=== PATIENT | female | born 1955 | race Caucasian/White ===

== ENCOUNTER 2018-02-22 10:17 | Inpatient (IN) | payer OTHER, SELFPAY ==
[2018-02-21 12:48] VITALS: BMI 25.8
[2018-02-22] VITALS (17 sets, daily range): BP systolic 107–170; BP diastolic 76–96; PULSE 83–89; RESP 12–20; TEMP 36.3–36.8; O2SAT 93–97; BMI 27.2
--- NOTE | 2018-02-22 | DI.RAD.S_ITS ---
PROCEDURE: XR CERVICAL SPINE 2V OR 3V INDICATIONS: C4-5,C5-6,C6-7 ACDF TECHNIQUE: 2 intraoperative views of the cervical spine were acquired. [facility], 15:32. FINDINGS: 2 intraoperative fluoroscopic views of the cervical spine demonstrate anterior fixation and fusion at C4-C7 with an anterior fixation plate and multiple fixation screws. IMPRESSION: 1. Intraoperative fluoroscopic views demonstrate ACDF at C4-C7. Dictated by: Seymour Kolb M.D. on 02/22/2018 at 15:46 Approved by: Seymour Kolb M.D. on 02/22/2018 at 15:53
[2018-02-22] MEDS: LACTATED RINGERS 1,000 ML 42 ML IV ×2 (11:03→15:21)
--- NOTE | 2018-02-22 11:53 | PM.PREOP ---
Pre-operative Note Interval Note Pre-op Check: Yes History & Physical Reviewed by Physician, Yes Exam Performed and Yes History & Physical exam performed today by Physician Changes: No
[2018-02-22] MEDS: CEFAZOLIN 2 GM/100 ML FROZ.PIGGY IV ×2 (12:45→20:54)
--- NOTE | 2018-02-22 13:14 | SUR.OPER ---
Supine, head on gel donut. Arms padded with gel pads and papoosed with a draw sheet and secured with towel clips x 2; towel roll under shoulders. Pt. taped from shoulders to foot of bed. Safety belt at thigh. Legs uncrossed.
[2018-02-22] MEDS: ACETAMINOPHEN IV 1,000 MG/100 ML VIAL 400 MG IV (14:08)
[2018-02-22] MEDS: HYDROMORPHONE 2 MG INJ 0.5 MG IV ×4 (15:35→16:10)
--- NOTE | 2018-02-22 15:52 | P.OP_ITS ---
Operative Date/Time/Diagnoses Date of procedure: 02/22/18 Time of procedure: 12:49 Pre-op diagnosis: 1. C4-5, C5-6, C6-7 spinal stenosis 2. C4-5, C5-6, C6-7 spondylosis and radiculopathy Post-op diagnosis: same Procedure & Clinicians Procedure: 1. C4-5 C5-6 C6-7 anterior cervical diskectomy and fusion 2. C4-5 C5-6 C6-7 anterior interbody cage placement 3. C4-5 C5-6 C6-7 anterior instrumentation with plate and screw placement in C4 -C5-C6 and C7 vertebrae 4. Utilization of microsurgical technique and operating microscope Same procedure as scheduled: Yes Indications: Patient has been having chronic neck pain and worsening cervical radiculopathy. Patient failed multiple conservative management with worsening pain weakness and numbness in her upper extremity. Patient has been having difficulty performing activity of daily living. After discussing risks benefits of treatment options, patient elected proceed with surgery. Surgeon: Jerry Haas [employer] Department Supervisor: Mya Leon Click Yes if Unassisted: No Anesthesia Type: General Operative Notes Closure Type: primary Specimen(s): none sent Implants & Drains: Globus extend plate, PEEK cage Estimated Blood Loss (mL): 50 Blood products transfused: none Procedure in detail: Patient was seen in the preoperative area. Risks and benefits of the surgery was discussed with the patient. Operative consent was obtained and placed in the chart. Patient was then taken to the operative room. Prophylactic antibiotic was given less than 0.5 hr prior to skin incision. General anesthesia was administered. Patient was placed into a supine position on her radiolucent table. Bilateral shoulders were taped down to allow proper C-arm imaging. Anterior cervical area was prepped and draped in a sterile fashion. Time-out was performed at this time. Using lateral C-arm imaging, the level between C4 and C7 was identified and marked on patient's neck. A oblique incision from midline towards medial border of sternocleidomastoid muscle was made. The platysma muscle was incised in line with skin incision. Metzenbaum scissor was used to develop the plane between the medial border of sternocleidomastoid d and the strap muscles medially. The carotid sheath and its contents were identified and protected behind the hand- held retractor during the entire case. The plane between the carotid sheath and strap muscles was developed with Metzenbaum scissors. Dissection was made down to the level of the anterior cervical fascia. Longus colli muscle was incised on the anterior aspect of vertebral bodies bilaterally from C4-C7. Spinal needle was placed into the C4-5 disc space and confirmed with lateral C-arm imaging. Using microsurgical technique and operative microscope, anterior cervical diskectomy was performed at C4-5 C5-6 and C6-7 level. This was done by removing the disc material, removing the anterior and posterior osteophytes posterior longitudinal ligaments along with performing bilateral foraminotomies at all 3 levels. Patient was found to have severe central and foraminal stenosis at all 3 levels. Patient's stenosis was fully decompressed after decompression was completed. After the diskectomy was completed, 3 anterior interbody cages were obtained. The cages were packed with globus via cell bone grafting material. One cage each along with the bone grafting material was then packed into the interbody spaces from C4-C7 with one cage into each interbody level. After the cages were placed, the anterior cervical plate was stabilized to the C4-C7 vertebrae using 2 screws at each each level. Total 8 screws were placed. After confirming placement of the hardware with AP and lateral C-arm imaging, the screws were locked into the plate using the locking mechanism and torque limiting screwdriver. After the hardware was placed and confirmed with AP and lateral C-arm imaging, the wound was irrigated with sterile normal saline. The platysma muscle and the subcutaneous tissue was closed with 2-0 Vicryl. The skin was closed with 4- 0Monocryl and Steri-Strips. Patient tolerated the procedure well. Patient was transferred recovery room in stable condition. There were no complications. Complications: none Condition: stable Disposition: Acute Care Plan for aftercare: Admit to inpatient hospital
[2018-02-22] MEDS: SODIUM CHLORIDE 0.9% 1,000 ML 100 ML IV (18:49)
[2018-02-22] MEDS: OXYCODONE IR 5 MG TABLET 10 MG PO ×2 (19:36→23:52)
[2018-02-22] MEDS: SENNOSIDES 8.6 MG TABLET 17.2 MG PO (20:54)
[2018-02-22] MEDS: DOCUSATE 100 MG CAPSULE PO (20:54)
[2018-02-22] MEDS: diphenhydrAMINE 50 MG/ML VIAL 25 MG IV (21:00)
[2018-02-23 04:00] VITALS: BP 140/97; PULSE 88; RESP 17; TEMP 36.7; O2SAT 96
[2018-02-23] MEDS: OXYCODONE IR 5 MG TABLET 10 MG PO ×2 (04:07→08:30)
[2018-02-23] MEDS: CEFAZOLIN 2 GM/100 ML FROZ.PIGGY IV (04:11)
[2018-02-23] MEDS: SODIUM CHLORIDE 0.9% 1,000 ML 100 ML IV (04:11)
[2018-02-23 05:57] LABS: Hematocrit 39.1 % (36-46); Hemoglobin 13.3 g/dL (12.0-16.0)
[2018-02-23 08:15] VITALS: BP 150/86; PULSE 85; RESP 16; TEMP 37.2; O2SAT 96
[2018-02-23] MEDS: PANTOPRAZOLE 20 MG TABLET PO (08:32)
[2018-02-23] MEDS: CYANOCOBALAMIN (VITAMIN B-12) 500 MCG TABLET PO (08:32)
[2018-02-23] MEDS: CHOLECALCIFEROL (VITAMIN D3) 5,000 UNIT TABLET 5000 UNIT PO (08:32)
[2018-02-23] MEDS: DOCUSATE 100 MG CAPSULE PO (08:34)
--- NOTE | 2018-02-23 10:25 | PT.IIE ---
Current Diagnoses Other spondylosis with radiculopathy, cervical region (02/22/18) Spinal stenosis, cervical region (02/22/18) Surgery Performed Operation Date: 02/22/18 12:15 Actual Procedures p C4-5,C5-6,C6-7 ACDF w/Anterior Raymundo Haas MD Surgical History (Last Updated 02/21/18 @ 13:13 by Liana Lozano, RN) Hx of umbilical hernia repair (Acute) S/P bilateral unicompartmental knee replacement (Acute) S/P gastrectomy (Acute) S/P meniscectomy (Acute) S/P tonsillectomy and adenoidectomy (Acute) Medical History (Last Updated 02/21/18 @ 13:42 by Liana Lozano RN) Anxiety (Acute) Arthritis (Acute) Asthma (Acute) Bilateral cataracts (Acute) Cervical cancer (Acute) Chronic diarrhea (Acute) Diabetes (Acute) GERD (gastroesophageal reflux disease) (Acute) Hiatal hernia (Acute) History of UTI (Acute) History of hysterectomy (Acute) Kidney stones (Acute) Numbness (Acute) Osteoarthritis (Acute) Physical Therapy Inpatient Evaluation/Re-Eval M1 PT/OT-IP Prior Functional Status Start: 02/23/18 13:24 Freq: NEEDED Status: Active Protocol: Document 02/23/18 10:25 AB (Rec: 02/23/18 13:40 AB [id number]) Medical Review Prior Functional Status Medical History Reviewed Yes Communication able to make needs known Mobility and Gait pt stated that she is independent with all mobilities and ambulation without AD Social History Household Members spouse Living Arrangements House Number of Floors (Floors) One Floor Number of Stairs To Enter/Railing? 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 Additional Social History Comment spouse works but will be off work today and will be able to assist pt when home M2 PT-IP Current Condition Start: 02/23/18 13:24 Freq: NEEDED Status: Active Protocol: Document 02/23/18 10:25 AB (Rec: 02/23/18 13:40 AB [id number]) Physical Therapy Current Condition Current Condition Evaluation Date 02/23/18 Treatment Diagnosis s/p C4-7 ACDF; difficulty in walking Onset Date 02/22/18 Precautions Cervical Spine Precautions Soft Collar for Comfort No Heavy Lifting Log Roll Brace pt has a soft collar on on eval M3 PT-IP Subjective Start: 02/23/18 13:24 Freq: NEEDED Status: Active Protocol: Document 02/23/18 10:25 AB (Rec: 02/23/18 13:40 AB [id number]) Subjective Physical Therapy Visit Type Type Initial Evaluation Visit Start Time 10:25 Visit Stop Time 10:40 Total Visit Minutes 15 Number of PATTERN HANGER Visits 0 Physical Therapy Visit Comments Patient Comments pt agreeable to do PT Patient Goals to go home Therapy Pain Assessment Pain When Pain Assessed At Rest Pain Present Pain Present Pain Reported Location Anterior Neck Intensity 2 Scale Used Numeric (1 - 10) M4 PT-IP Mobility and Gait Start: 02/23/18 13:24 Freq: NEEDED Status: Active Protocol: Document 02/23/18 10:25 AB (Rec: 02/23/18 13:40 AB [id number]) PT-Bed Mobility Assessment Rolling Type of Rolling Log Rolling Level of Assist Standby Assistance Supine to Sit Supine to Sit Standby Assistance Sit to Supine Sit to Supine Standby Assistance Scooting Scooting to Edge of Bed Standby Assistance PT-Transfer Assessment Equipment Transfer Assistive Device Gait Belt Orthotic/Prosthetic Devices or Brace: No Transfers Transfer Destination Bed Transfer Technique Stand Step Pivot Transfer Ability Level of Assist Standby Assistance Gait Assessment Gait Gait Assistance Required: Standby Assistance Distance (Feet) 200 Able to Maintain Weight Bearing Status Yes During Gait Assistive Devices Assistive Device Gait Belt Factors Limiting Gait Function Factors Limiting Gait Function Limited Range of Motion Pain Stair Climbing Assessment Evaluation Level of Assist On Stairs Standby Assistance Devices Stair Climbing Assistive Devices None Technique/Endurance Stair Climbing Direction Ascend and Descend Stair Climbing Technique Step to Step Number of Steps Climbed 1 Query Text: Stair Climbing Set # Repetitions (reps) 2 PT-Balance Assessment Sitting Balance and Reactions Static Sitting Balance Ability Good Dynamic Sitting Balance Ability Good Standing Balance and Reactions Static Standing Balance Ability Good Dynamic Standing Balance Ability Good Device Used none M5 PT-IP Objective Assessments Start: 02/23/18 13:24 Freq: NEEDED Status: Active Protocol: Document 02/23/18 10:25 AB (Rec: 02/23/18 13:40 AB [id number]) Orientation Orientation/Cognition Level of Alertness Alert Orientation Name Age Birthday Month Date Year Day of Week Place Situation Safety Awareness Understands Safety Issues Strength Lower Extremity Strength Assessment Within Functional Limits Muscle Tone Muscle Tone WNL Yes M6 PT-IP Treatment Start: 02/23/18 13:24 Freq: NEEDED Status: Active Protocol: Document 02/23/18 10:25 AB (Rec: 02/23/18 13:40 AB [id number]) Physical Therapy Treatment Education Education Provided Precautions Safety Other Treatments Other Treatment Performed educated on donning/doffing of soft collar M7 PT-IP Assessment and Plan Start: 02/23/18 13:24 Freq: NEEDED Status: Active Protocol: Document 02/23/18 10:25 AB (Rec: 02/23/18 13:40 AB [id number]) PT Summary Assessment and Plan Potential Rehabilitation Potential Good Status of Condition at Evaluation Stable Summary Impairments Pain ROM Strength Bed Mobility Transfers Gait Activity Tolerance Assessment Summary pt doing well with mobility requiring SBA. pt will have spouse to assist her at home and plans to go home today. Goals Bed Mobility Goal Independent Transfer Goal Independent Gait Goal Independent Gait Distance 300 Other Goals up/down 1 step without rails mod I Days to Meet Goals 1 Frequency of Treatment Frequency Of Treatment Once a Day Treatment Plan Physical Therapy Treatment Plan Bed Mobility Training Transfer Training Gait Training Therapeutic Exercise Balance Retraining Post Op Education Discharge Planning Hot or Cold Pack Neuromuscular Re-ed Coordination Retraining Manual Therapy Recommendations To Nursing Amount of Assist Needed Standby Assistance Discharge Recommendations PT Discharge Recommendations Home with Assistance
--- NOTE | 2018-02-23 10:28 | P.DS_ITS ---
History of Present Illness Date Patient Seen: 02/23/18 Time Patient Seen: 10:24 Chief complaint: C4-5 C5-6 C6-7 acdf w/anterior instrumentation Narrative: Patient admitted for cervical fusion with Dr. Haas Discharge Providers Date of admission: 02/22/18 10:17 Primary care physician: Adal Lawler MD Consults: 02/22/18 17:11 Consult to Occupational Therapy Evaluate & Treat Comment: Physician Instructions: Evaluate and treat Consult to Physical Therapy Evaluate & Treat Comment: Physician Instructions: Evaluate and Treat Discharge provider: Shannon Betts PA-C Summary Discharge Diagnosis: Status post cervical fusion Hospital Course: Patient admitted for C4-7 Artificial cervical discectomy and fusion with Dr. Haas, and she consented to procedure. Hospital course unremarkable. On postop day 1. She was feeling well and wanted to go home. She notes some discomfort with swallowing but was able to eat breakfast. Her pain is well controlled with oxycodone. No complaints of muscle spasms. She was eating and voiding without difficulty or assistance. She has been up with physical therapy today. Exam Vital Signs (past 8 hours): - 02/23/18 04:00 02/23/18 08:15 Temperature 98.1 F 99.0 F Pulse Rate 88 85 Respiratory Rate 17 16 Blood Pressure 140/97 H 150/86 H Pulse Oximetry 96 96 Oxygen Delivery Method Room Air Oxygen Flow Rate 0 Narrative Exam Narrative: Patient is sitting at bedside chair in no acute distress. She is alert and oriented x3. Business Functional Analyst strength is strong and equal. Anterior neck dressing CDI. She is wearing her soft collar. Sensation intact to light touch throughout bilateral upper extremities. Her pain is well controlled with oxycodone. She has been able to swallow and eat breakfast today. She has been up with OT today. Objective Labs Result Diagrams: 02/23/18 05:37 Labs: Laboratory Results - last 24 hr 02/23/18 05:37 Hgb 13.3 Hct 39.1 Discharge Plan Discharge Plan Patient Disposition: Home Discharge comment: DC home this afternoon after PT Discharge Med Rec/Prescriptions Prescriptions: New acetaminophen 325 mg Tablet 325 mg PO Q4HR Qty: 60 RF: 0 docusate sodium 100 mg Capsule 100 mg PO BID Qty: 60 RF: 0 hydroxyzine pamoate 25 mg Capsule 25 mg PO Q6HR Qty: 30 RF: 0 oxycodone 5 mg capsule 5 mg PO Q4-6H PRN (Reason: pain) Qty: 60 RF: 0 Continue cyanocobalamin (vitamin B-12) 1,000 mcg Tablet 500 mcg PO QWEEK RF: 0 pantoprazole 20 mg Tablet,Delayed Release (Dr/Ec) 20 mg PO DAILY RF: 0 lysine [L-Lysine] 500 mg Tablet 500 mg PO DAILY RF: 0 cholecalciferol (vitamin D3) 5,000 unit Tablet 5,000 unit PO DAILY RF: 0 krill [id number] 1 cap PO DAILY RF: 0 Follow up/Referrals: Adal Lawler MD [Primary Care Provider] - Jerry Haas MD [Physician] - (Please follow up in 10-14 days with [facility]) Provider Discharge Instructions Diet: Diet as Tolerated Activity: No excessive bending, lifting, or twisting Skin/Wound/Dressing Care Report to your healthcare provider any signs of infection, such as:: chills, fever and increased pain Visit Report/Discharge Packet Instructions: DI for Anterior Cervical Discectomy and Fusion, Oxycodone, Hydroxyzine Visit Report Forms: Stroke Signs & Symptoms Discharge Data Primary Care Provider: Adal Lawler Attending Provider: Jerry Haas Admit Date/Time: 02/22/18 10:17
--- NOTE | 2018-02-23 11:02 | OT.IP.EVAL ---
Current Diagnoses Other spondylosis with radiculopathy, cervical region (02/22/18) Spinal stenosis, cervical region (02/22/18) Surgery Performed Operation Date: 02/22/18 12:15 Actual Procedures p C4-5,C5-6,C6-7 ACDF w/Anterior Raymundo Haas MD Past Medical History (Last Updated 02/21/18 @ 13:42 by Liana Lozano, RN) Anxiety (Acute) Arthritis (Acute) Asthma (Acute) Bilateral cataracts (Acute) Cervical cancer (Acute) Chronic diarrhea (Acute) Diabetes (Acute) GERD (gastroesophageal reflux disease) (Acute) Hiatal hernia (Acute) History of UTI (Acute) History of hysterectomy (Acute) Kidney stones (Acute) Numbness (Acute) Osteoarthritis (Acute) Surgical History (Last Updated 02/21/18 @ 13:13 by Liana Lozano RN) Hx of umbilical hernia repair (Acute) S/P bilateral unicompartmental knee replacement (Acute) S/P gastrectomy (Acute) S/P meniscectomy (Acute) S/P tonsillectomy and adenoidectomy (Acute) Occupational Therapy Inpatient Evaluation/Re-Eval M1 PT/OT-IP Prior Functional Status Start: 02/23/18 13:24 Freq: NEEDED Status: Active Protocol: Document 02/23/18 11:02 ANNA (Rec: 02/23/18 15:41 ANNA [id number]) Medical Review Prior Functional Status Medical History Reviewed Yes Diet/Fluid Consistency Regular Communication WNL Mobility and Gait pt stated that she is independent with all mobilities and ambulation without AD Activities of Daily Living and IADL's pt indep with all self care, IADLS, driving but limited by cervical pain with numbness in B hands R>L Social History Household Members spouse Living Arrangements House Number of Floors (Floors) One Floor Number of Stairs To Enter/Railing? 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 Additional Social History Comment Supportive can provide assist before and after work M2 OT-IP Current Condition Start: 02/23/18 15:28 Freq: Status: Active Protocol: Document 02/23/18 11:02 ANNA (Rec: 02/23/18 15:41 ANNA [id number]) Occupational Therapy Current Condition Current Condition Evaluation Date 02/23/18 Treatment Diagnosis decreased self care after C4-7 ACDF Post Operative Precautions Cervical Spine Precautions Soft Collar for Comfort No Heavy Lifting Log Roll M3 OT- IP Subjective and Pain Start: 02/23/18 15:28 Freq: Status: Active Protocol: Document 02/23/18 11:02 PJMartha (Rec: 02/23/18 15:41 PJ [id number]) OT- Subjective Occupational Therapy Visit Type Type Initial Evaluation Visit Start Time 10:22 Visit Stop Time 11:02 Total Visit Minutes 40 Notes here for education Occupational Therapy Visit Comments Patient Comments 'I think I can go home today. Patient/Caregiver Goals to resume independence in home setting OT Pain Assessment Pain When Pain Assessed After Treatment Pain Present Pain Present Pain Reported Location Anterior Neck Intensity 6 Scale Used Numeric (1 - 10) Description Aching Acute Pain Behaviors Guarding Management Techniques Distraction Re-positioning Timing of Activity with Medications M4 OT- IP ADL's Start: 02/23/18 15:28 Freq: Status: Active Protocol: Document 02/23/18 11:02 ANNA (Rec: 02/23/18 15:41 [facility] [id number]) OT [id number] General Evaluation Self-Feeding Ability Independent Comments OT Self-Feeding Comments Pt c/o some throat soreness and swelling. S.T in to advise pt prior to this session. OT ADL-Grooming General Evaluation Grooming Ability Independent Comments OT Grooming Comments standing at sink after education re: body mechanics OT ADL-Oral Care General Eval Oral Care Ability Independent Comments Oral Care Comments standing at sink after education re: body mechanics OT ADL-Dressing General Eval Upper Body Dressing Ability Independent Lower Body Dressing Ability Independent Areas Needing Assistance Button-Up Shirt/Blouse Underpants/Brief Pants/Shorts Socks Shoes Comments OT Dressing Comments after education re: body mechanics OT ADL-Toileting General Evaluation Toileting Ability Independent OT ADL-Bathing Comments OT Bathing Comments pt decline to shower here; provided education to pt/ re: methods to keep anterior cervical incision dry and shampoo hair within C spine precautions. They verbalize understanding. Pt has HH shower hose and husbnad to assist PRN. M5 OT- IP IADL's Start: 02/23/18 15:28 Freq: Status: Active Protocol: Document 02/23/18 11:02 PJM (Rec: 02/23/18 15:41 [facility] [email or web address]) OT-Instrumental Activities of Daily Living Deficits IADL Deficits Identified Deficits Home Safety Awareness Awareness of Need for Assistance at Home Good Awareness Ability to Problem Solve Emergency Able to Problem Solve Situations Medication Management Medication Management No Deficits Identified Money Management Money Management No Deficits Identified Meal Preparation Meal Preparation Caregiver Provides Assist Meal Preparation Comments until pt able Battery Tester Battery Tester Caregiver Provides Assist Battery Tester Comments until pt able Driving Driving Caregiver Provides Assist Driving Comments until pt able M6 OT- IP Functional Cognition Start: 02/23/18 15:28 Freq: Status: Active Protocol: Document 02/23/18 11:02 PJM (Rec: 02/23/18 15:41 [facility] NRTM) Cognitive Factors Limiting Selfcare Function Cognitive Ability Level of Alertness Alert Patient Orientation Name Age Birthday Month Date Year Day of Week Place Situation Attention Span Ability Capable of Focused Attention Capable of Sustained Attention Ability to Follow Commands Able to Follow Multi-Step Commands Memory Description No Deficits Noted Safety Awareness No Deficits Noted Problem Solving Ability No deficits Noted Executive Function Ability No Deficits Noted Cognitive Comments Cognitive Assessment Comments Pt verbalizes and demonstrates good understanding of precautions and adapted ADLS OT- Vision and Hearing OT- Hearing Assessment OT- Hearing Assessment WFL OT- Vision Assessment Visual Acuity WFL Contact Lenses Vision Assessment Comments Pt denies any recent changes M7 OT- IP Mobility and Balance Start: 02/23/18 15:28 Freq: Status: Active Protocol: Document 02/23/18 11:02 PJM (Rec: 02/23/18 15:41 [facility] NRTM) OT-Transfer Assessment Sit to and From Stand Sit to and from Stand Independent Transfers Transfer Ability Independent Technique Transfer Destination Car Chair Shower Stall Toilet Devices Transfer Assistive Devices None OT- Gait Assessment Gait Gait Assistance Required: Independent Comments Gait Ability Comments pt up in room ad kath without a device, no LOB OT- Balance Assessment Sitting Balance and Reactions Static Sitting Balance Ability Good Dynamic Sitting Balance Ability Good Standing Balance and Reactions Static Standing Balance Ability Good Dynamic Standing Balance Ability Good M8 OT- IP Objective Assessments Start: 02/23/18 15:28 Freq: Status: Active Protocol: Document 02/23/18 11:02 PJ (Rec: 02/23/18 15:41 [facility] NRTM) OT Gross Range of Motion Upper Extremity Range of Motion Assessment Within Functional Limits OT Strength Upper Extremity Strength Assessment Within Functional Limits OT- Coordination Assessment Comments Coordination Comments BUE WFL per pt OT-Muscle Tone Assessment Muscle Tone WNL Yes OT Sensation Assessment Comments Summary Comments Pt reports pre-op numbness in B hands to wrists; R>L which appears improved since surgery M9 OT- IP Assessment and Plan Start: 02/23/18 15:28 Freq: Status: Active Protocol: Document 02/23/18 11:02 PJM (Rec: 02/23/18 15:41 PJM [id number]) OT Summary Assessment and Plan Potential Rehabilitation Potential Good Analytic Complexity at Evaluation Low Summary Progress Towards Goals Safe For Discharge Goals Met Assessment Summary Low complexity OT evaluation and all OT education completed with pt/ today re: C- spine precautions and adapted ADLS. They verbalize and demonstrate understanding. Pt plans to d/c home today with 24 assist through weekend then can assist before/ after work. No further OT services needed. Frequency of Treatment Frequency Of Treatment Discharge Discharge Recommendations OT Discharge Recommendations Home with Assistance Home Equipment Needs None
[2018-02-23] MEDS: hydrOXYzine pamoate 25 MG CAPSULE PO (11:21)
--- NOTE | 2018-02-23 11:32 | PC.NURSE ---
Day shift: Left unit at 1120 w/ spouse to private car. Gave 25mg Vistaril for mild nausea. Paperwork signed and all questions answered. Has all personal belongings. Talked about the importance of using caution when eating/drinking. She was receptive to this.
--- NOTE | 2018-02-23 13:24 | CM.DANOTE ---
Discharge Planning/Care Management DCP: assessment: case received, EMR reviewed. PT and OT ordered but no notes yet available. Pt is a 62 year old female who admitted to care of Surgeon: Dr. Haas for a planned cervical spinal surgery. Payer: [employer]. Went to room to check in on pt and she had already been d/c'd and left for home with her . Checked in with PT Tiffanie who did see pt today and said she did well and was ok'd for home CM Discharge Assessment Start: 02/23/18 13:22 Freq: Status: Discharge Protocol: Document 02/23/18 13:22 ITV (Rec: 02/23/18 13:24 [email or web address] [id number]) Discharge Planning Assessment Advance Directives? No History Provided By Medical Record Prior Living Arrangements House Household Members spouse Comment pt had left by the time this DCPlanner got to the room Review Status In Process Next Review Type Continued Stay Review
== END 2018-02-23 11:38 | disposition home or self-care (01) | DRG 473 ==
PROVIDERS: Admitting Provider Orthopaedic Surgery Orthopaedic Surgery of the Spine; PCP Internal Medicine; Visit Provider Orthopaedic Surgery Orthopaedic Surgery of the Spine
PROC: 0RG20A0 Fusion of 2 or more Cervical Vertebral Joints with Interbody Fusion Device, Anterior Approach, Anterior Column, Open Approach (ICD-10-PCS; principal; 2018-02-22 12:15)
DX: M47.22 Other spondylosis with radiculopathy, cervical region (principal); E11.9 Type 2 diabetes mellitus without complications; J45.909 Unspecified asthma, uncomplicated; Z87.891 Personal history of nicotine dependence; M48.02 Spinal stenosis, cervical region
CPT/HCPCS: 36415; 72040; 76001; 85014; 85018; 97161; 97165; 97535; C1776; J0131; J0690; J1100; J1170; J1200; J2405; J2704; J3010

== ENCOUNTER 2018-02-24 11:15 | Emergency (ER) | payer OTHER, SELFPAY ==
[2018-02-22 16:30] VITALS: BMI 27.2
[2018-02-24 11:18] VITALS: BP 155/89; PULSE 87; RESP 14; TEMP 36.4; O2SAT 96
--- NOTE | 2018-02-24 13:19 | DI.RAD.S_ITS ---
PROCEDURE: XR CHEST 2V INDICATIONS: congestion. PT in ED WR. TECHNIQUE: 2 views of the chest were acquired. COMPARISON: None. FINDINGS: Surgical changes and devices: Anterior fusion hardware is seen at C4-C7 levels. Lungs and pleura: No pleural effusions or pneumothorax. Lungs are clear. Mediastinum: Mediastinal contours are normal. Heart size is normal. Bones and chest wall: No suspicious bony abnormalities. Soft tissues appear unremarkable. IMPRESSION: No acute cardiopulmonary pathology. Dictated by: Yfn Shaikh M.D. on 02/24/2018 at 13:46 Approved by: Yfn Shaikh M.D. on 02/24/2018 at 13:47
== END 2018-02-24 14:52 | disposition left against medical advice (07) ==
PROVIDERS: Emergency Provider Nurse Practitioner Family; PCP Internal Medicine
DX: H02.402 Unspecified ptosis of left eyelid (principal)
CPT/HCPCS: 71046; 99281